=== PATIENT | female | born 1985 | race American Indian/Alaskan Native ===

== ENCOUNTER 2017-06-07 07:09 | Emergency (ER) | payer MEDICAID, OTHER ==
[2017-06-07 07:14] VITALS: BP 143/87; PULSE 75; RESP 18; TEMP 98; O2SAT 99
--- NOTE | 2017-06-07 07:26 | C.PDOC ---
History Of Present Illness Patient arrives in the ED with complaints of dental pain in the upper left premolar. She notes that she has been taking Motrin since yesterday and noticing that the pain has not changed. The patient states that she will be having her dentist appointment today. Time Seen by Provider: 06/07/17 07:16 Chief Complaint (Nursing): Dental Pain History Per: Patient History/Exam Limitations: no limitations Onset/Duration Of Symptoms: Days Current Symptoms Are (Timing): Still Present Quality: Positive for: Aching Past Medical History Reviewed: Historical Data, Nursing Documentation, Vital Signs Vital Signs: Last Vital Signs Temp 98 F 06/07/17 07:13 Pulse 75 06/07/17 07:13 Resp 18 06/07/17 07:13 BP 143/87 06/07/17 07:13 Pulse Ox 99 06/07/17 08:10 - Medical History PMH: No Chronic Diseases, Depression Surgical History: No Surg Hx Family History: States: No Known Family Hx - Social History Hx Tobacco Use: No Hx Alcohol Use: No Hx Substance Use: No Review Of Systems Except As Marked, All Systems Reviewed And Found Negative. Constitutional: Negative for: Fever, Chills, Weakness ENT: Positive for: Mouth Pain (dental pain). Negative for: Ear Pain Neurological: Negative for: Weakness, Numbness Physical Exam - Physical Exam Appears: Well, Non-toxic, No Acute Distress Skin: Normal Color, Warm Head: Atraumatic, Normacephalic Nose: Normal Oral Mucosa: Moist Tongue: Normal Appearing Lips: Normal Appearing Teeth: Tender To Palpation (left upper premolar) Throat: Normal, No Erythema, No Exudate Cardiovascular: Rhythm Regular Respiratory: Normal Breath Sounds Neurological/Psych: Oriented x3, Normal Speech, Normal Cognition ED Course And Treatment O2 Sat by Pulse Oximetry: 99 (RA) Pulse Ox Interpretation: Normal Progress Note: Treated with Motrin and amoxicillin. Advised patient to follow up with dentist later today. Disposition Counseled Patient/Family Regarding: Diagnosis, Rx Given - Disposition [facility] [Outside] Disposition: HOME/ ROUTINE Disposition Time: 07:30 Condition: STABLE Additional Instructions: Follow up with your dentist for further evaluation Prescriptions: Amoxicillin 500 mg PO Q8 #15 tablet Naproxen [Naprosyn] 1 tab PO BID PRN #25 tab PRN Reason: Pain Instructions: Dental Abscess (ED), Toothache (ED) Forms: [facility] (Nauruan), Work Excuse - POA Present On Arrival: None - Clinical Impression Clinical Impression: Dental abscess, Toothache - PA / [employer] / Resident Statement MD/DO has reviewed & agrees with the documentation as recorded. - Scribe Statement The provider has reviewed the documentation as recorded by the Scribe Marita Sherwood All medical record entries made by the Joyibromulo were at my direction and personally dictated by me. I have reviewed the chart and agree that the record accurately reflects my personal performance of the history, physical exam, medical decision making, and the department course for this patient. I have also personally directed, reviewed, and agree with the discharge instructions and disposition.
[2017-06-07] MEDS ORDERED: Amoxicillin-Clav 500-125 mg Tab PO ONE (07:35)
== END 2017-06-07 07:42 | disposition home or self-care (01) ==
LOC: C.ER 07:09
DX: K04.7 Periapical abscess without sinus (principal)